=== PATIENT | female | born 2000 | race Caucasian/White ===

== ENCOUNTER 2021-04-09 20:48 | Emergency (ER) | payer BC ==
[2021-04-09 21:33] LABS: HEMATOCRIT 43.9 % (37.0-47.0); MEAN CELL VOLUME 90.1 fl (81.0-99.0); MEAN CORPUSCULAR HGB 30.8 pg (27.0-31.0); MEAN CORPUSCULAR HGB CONC 34.2 g/dl (33.0-37.0); MEAN PLATELET VOLUME 9.1 fl (9.6-12.3); PLATELET COUNT AUTOMATED 113 10*3/uL (130-400); RED BLOOD COUNT 4.87 10*6/uL (4.10-5.10); RED CELL DISTRI WIDTH 12.8 % (0-14.5); WHITE BLOOD COUNT 9.4 10*3/uL (4.8-10.8)
[2021-04-09 21:50] LABS: ALBUMIN 3.2 gm/dl (3.1-4.5); ALKALINE PHOSPHATASE 130 U/L (45-117); BUN 4 mg/dl (7-24); CHLORIDE 108 mmol/L (98-107); CREATININE 0.61 mg/dL (0.55-1.02); LIPASE 69 U/L (73-393); POTASSIUM 3.6 mmol/L (3.5-5.1); SGOT/AST 45 IU/L (3-35); SGPT/ALT 100 U/L (12-78); SODIUM 140 mmol/L (136-145)
[2021-04-09 22:00] LABS: BETA-HCG, QUANT < 1.0 mIU/mL (1-3)
[2021-04-09 22:04] LABS: ATYPICAL LYMPHS 20 % (0-0); TOTAL CELLS COUNTED 100 #CELLS
[2021-04-09 22:05] LABS: PLATELET SUFFICIENCY LOW (NORMAL)
[2021-04-09 22:45] LABS: BILIRUBIN Negative (Negative); BLOOD Negative (Negative); CLARITY Clear (Clear); COLOR Yellow (Yellow); GLUCOSE Negative (Negative); KETONE Negative (Negative); LEUKO ESTERASE Negative (Negative); NITRITE Negative (Negative); PH 7.5 (4.5-8.0); SPECIFIC GRAVITY <= 1.005 (1.001-1.030)
[2021-04-09 23:26] LABS: BACTERIA TRACE; RBC 0-2 rbc/hpf (0-2); WBC 0-2 wbc/hpf (0-5)
[2021-04-10] MEDS ORDERED: DICYCLOMINE HYD10 MG PO (12:06)
[2021-04-10] MEDS ORDERED: ZOFRAN4 MG PO (12:06)
== END 2021-04-09 23:40 | disposition home or self-care (01) ==
LOC: ED 20:48
PROVIDERS: Physician Assistant
DX: R11.2 Nausea with vomiting, unspecified (principal); R10.9 Unspecified abdominal pain

== ENCOUNTER 2021-04-17 14:19 | Emergency (ER) | payer BC ==
[~2021-04-17 14:19] MED LIST: DICYCLOMINE HYD10 MG PO; ZOFRAN4 MG PO
[2021-04-17 15:40] LABS: BILIRUBIN Negative (Negative); BLOOD Negative (Negative); CLARITY Clear (Clear); COLOR Yellow (Yellow); GLUCOSE Negative (Negative); KETONE Negative (Negative); LEUKO ESTERASE Negative (Negative); NITRITE Negative (Negative); PH 7.5 (4.5-8.0); SPECIFIC GRAVITY <= 1.005 (1.001-1.030); UROBILINOGEN 0.2 E.U./dl (0.0-1.0)
[2021-04-17 15:44] LABS: RBC 0-2 rbc/hpf (0-2); WBC 0-2 wbc/hpf (0-5)
[2021-04-17 15:45] LABS: BACTERIA TRACE
[2021-04-17 15:54] LABS: HEMATOCRIT 41.7 % (37.0-47.0); MEAN CELL VOLUME 91.2 fl (81.0-99.0); MEAN CORPUSCULAR HGB 31.5 pg (27.0-31.0); MEAN CORPUSCULAR HGB CONC 34.5 g/dl (33.0-37.0); MEAN PLATELET VOLUME 8.8 fl (9.6-12.3); PLATELET COUNT AUTOMATED 154 10*3/uL (130-400); RED BLOOD COUNT 4.57 10*6/uL (4.10-5.10); RED CELL DISTRI WIDTH 13.2 % (0-14.5); WHITE BLOOD COUNT 7.9 10*3/uL (4.8-10.8)
[2021-04-17 16:11] LABS: ALBUMIN 2.9 gm/dl (3.1-4.5); ALKALINE PHOSPHATASE 118 U/L (45-117); BUN 5 mg/dl (7-24); CHLORIDE 110 mmol/L (98-107); CREATININE 0.56 mg/dL (0.55-1.02); LIPASE 71 U/L (73-393); POTASSIUM 3.8 mmol/L (3.5-5.1); SGOT/AST 52 IU/L (3-35); SGPT/ALT 99 U/L (12-78); SODIUM 140 mmol/L (136-145); TOTAL PROTEIN 7.1 gm/dL (6.4-8.2)
[2021-04-17 16:12] LABS: BETA-HCG, QUANT < 1.0 mIU/mL (1-3)
[2021-04-17 17:09] LABS: ATYPICAL LYMPHS 8 % (0-0); TOTAL CELLS COUNTED 100 #CELLS
[2021-04-17 17:11] LABS: BURR CELLS FEW; OVALOCYTES FEW; PLATELET SUFFICIENCY NORMAL (NORMAL)
[2021-04-17] MEDS ORDERED: ZOFRAN4 MG PO (18:22)
== END 2021-04-17 18:29 | disposition home or self-care (01) ==
LOC: ED 14:19
PROVIDERS: Emergency Medicine
DX: R11.2 Nausea with vomiting, unspecified (principal); R10.13 Epigastric pain

== ENCOUNTER 2021-06-26 11:50 | Emergency (ER) | payer BC ==
[~2021-06-26] VITALS: Wt 72.6 kg
[2021-06-26] MEDS ORDERED: CEPHALEXIN500 M1 PO (12:39)
== END 2021-06-26 13:00 | disposition home or self-care (01) ==
LOC: ED 11:50
DX: H66.91 Otitis media, unspecified, right ear (principal)

== ENCOUNTER 2021-07-17 20:56 | Emergency (ER) | payer BC ==
[~2021-07-17] VITALS: Ht 154.9 cm; Wt 73.5 kg
[~2021-07-17 20:56] MED LIST changes: +CEPHALEXIN500 M1 PO
[2021-07-17] MEDS ORDERED: AUGMENTIN 875875 MG PO (21:54)
== END 2021-07-17 22:01 | disposition home or self-care (01) ==
LOC: ED 20:56
DX: H66.91 Otitis media, unspecified, right ear (principal)

== ENCOUNTER 2022-02-14 17:19 | Emergency (ER) | payer BC ==
[~2022-02-14] VITALS: Ht 160 cm; Wt 83.5 kg
[~2022-02-14 17:19] MED LIST changes: +AUGMENTIN 875875 MG PO
[2022-02-14 18:22] LABS: BASO % 0.2 % (0.0-1.0); EOS # 0.1 10*3/uL (0.0-0.4); EOS % 1.1 % (1.0-4.0); HEMATOCRIT 31.9 % (37.0-47.0); LYMPH # 2.2 10*3/uL (1.3-4.4); LYMPH % 17.5 % (27.0-41.0); MEAN CELL VOLUME 98.2 fl (81.0-99.0); MEAN CORPUSCULAR HGB 33.8 pg (27.0-31.0); MEAN CORPUSCULAR HGB CONC 34.5 g/dl (33.0-37.0); MONO # 0.9 10*3/uL (0.1-1.0); MONO % 6.8 % (3.0-9.0); NEUT # 9.2 10*3/uL (2.3-7.9); NEUT % 73.9 % (47.0-73.0); PLATELET COUNT AUTOMATED 144 10*3/uL (130-400); RED BLOOD COUNT 3.25 10*6/uL (4.10-5.10); RED CELL DISTRI WIDTH 12.9 % (0-14.5); WHITE BLOOD COUNT 12.4 10*3/uL (4.8-10.8)
[2022-02-14 18:49] LABS: ALKALINE PHOSPHATASE 58 U/L (45-117); BUN 7 mg/dl (7-24); CHLORIDE 108 mmol/L (98-107); CREATININE 0.48 mg/dL (0.55-1.02); POTASSIUM 3.6 mmol/L (3.5-5.1); SGOT/AST 15 IU/L (3-35); SGPT/ALT 24 U/L (12-78); SODIUM 139 mmol/L (136-145); TOTAL PROTEIN 6.2 gm/dL (6.4-8.2)
[2022-02-14 19:32] LABS: BILIRUBIN Negative (Negative); BLOOD Negative (Negative); CLARITY Clear (Clear); COLOR Yellow (Yellow); GLUCOSE Negative (Negative); KETONE Negative (Negative); LEUKO ESTERASE Trace (Negative); NITRITE Negative (Negative); SPECIFIC GRAVITY <= 1.005 (1.001-1.030); UROBILINOGEN 0.2 E.U./dl (0.0-1.0)
[2022-02-14 19:56] LABS: BACTERIA TRACE; YEAST TRACE
== END 2022-02-14 20:15 | disposition home or self-care (01) ==
LOC: ED 17:19
PROVIDERS: Nurse Practitioner Family
DX: R55 Syncope and collapse (principal); Z20.822 Contact with and (suspected) exposure to COVID-19

== ENCOUNTER 2022-02-25 02:59 | Emergency (ER) | payer BC ==
[2022-02-25 03:17] LABS: BILIRUBIN Negative (Negative); BLOOD Negative (Negative); CLARITY Clear (Clear); COLOR Yellow (Yellow); GLUCOSE Negative (Negative); KETONE Negative (Negative); LEUKO ESTERASE Negative (Negative); NITRITE Negative (Negative); UROBILINOGEN 0.2 E.U./dl (0.0-1.0)
[2022-02-25 03:43] LABS: RBC 0-2 rbc/hpf (0-2)
== END 2022-02-25 04:42 | disposition left against medical advice (07) ==
LOC: ED 02:59
PROVIDERS: Emergency Medicine
DX: O26.852 Spotting complicating pregnancy, second trimester (principal); Z3A.20 20 weeks gestation of pregnancy

== ENCOUNTER 2024-05-19 23:39 | Inpatient (IN) | payer SELFPAY ==
[~2024-05-19] VITALS: Ht 157.4 cm; Wt 57.4 kg
[2024-05-19 23:47] VITALS: BP 115/62
[2024-05-19] MEDS ORDERED: SODIUM CHLORIDE 0.9% 1,000 ML IV SCH (23:50)
[2024-05-20] VITALS (8 sets, daily range): BP systolic 100–129; BP diastolic 48–84
[2024-05-20 00:09] LABS: BASO % 0.2 % (0.0-1.0); HEMATOCRIT 35.3 % (37.0-47.0); LYMPH # 0.9 10*3/uL (1.3-4.4); LYMPH % 8.4 % (27.0-41.0); MEAN CELL VOLUME 86.7 fl (81.0-99.0); MEAN CORPUSCULAR HGB 28.3 pg (27.0-31.0); MEAN CORPUSCULAR HGB CONC 32.6 g/dl (33.0-37.0); MEAN PLATELET VOLUME 8.4 fl (9.6-12.3); MONO # 0.5 10*3/uL (0.1-1.0); MONO % 4.5 % (3.0-9.0); NEUT # 9.6 10*3/uL (2.3-7.9); NEUT % 86.2 % (47.0-73.0); PLATELET COUNT AUTOMATED 141 10*3/uL (130-400); RED BLOOD COUNT 4.07 10*6/uL (4.10-5.10); RED CELL DISTRI WIDTH 12.6 % (0-14.5); WHITE BLOOD COUNT 11.2 10*3/uL (4.8-10.8)
[2024-05-20 00:27] LABS: BILIRUBIN Negative (Negative); BLOOD Negative (Negative); CLARITY Cloudy (Clear); COLOR Yellow (Yellow); GLUCOSE Negative (Negative); KETONE Negative (Negative); LEUKO ESTERASE 1+ (Negative); NITRITE Negative (Negative); SPECIFIC GRAVITY 1.015 (1.001-1.030)
[2024-05-20 00:28] LABS: CPK < 15 U/L (34-171)
[2024-05-20 00:34] LABS: URINE AMPHETAMINES Positive (1000ng/ml); URINE BARBITURATES Negative (200ng/ml); URINE BENZODIAZEPINES Negative (200ng/ml); URINE CANNABINOIDS (THC) Negative (50ng/ml); URINE COCAINE Positive (300ng/ml); URINE METHADONE Negative (300ng/ml); URINE OPIATES Negative (300ng/ml); URINE PHENCYCLIDINE Negative (25ng/ml)
[2024-05-20 00:40] LABS: ALKALINE PHOSPHATASE 174 U/L (46-116); BUN 7 mg/dl (9-23); CHLORIDE 98 mmol/L (98-107); POTASSIUM 3.7 mmol/L (3.4-5.1); SGPT/ALT 9 U/L (5-49); TOTAL PROTEIN 5.9 gm/dL (6.0-8.0)
[2024-05-20 00:51] LABS: BACTERIA 4+
[2024-05-20 00:52] LABS: WBC 21-30 wbc/hpf (0-5)
[2024-05-20] MEDS ORDERED: Ceftriaxone Sodium 1 GM/10 ML SYR IV ONE (00:55)
[2024-05-20] MEDS ORDERED: ACETAMINOPHEN 325 MG TAB PO ONE (01:00)
[2024-05-20] MEDS ORDERED: ACETAMINOPHEN 650 MG SUPP R PRN (01:35)
[2024-05-20] MEDS ORDERED: BISACODYL 5 MG TAB PO PRN (01:35)
[2024-05-20] MEDS ORDERED: BISACODYL 10 MG SUPP R PRN (01:35)
[2024-05-20] MEDS ORDERED: Magnesium Hydroxide 30 ML UDC PO PRN (01:35)
[2024-05-20] MEDS ORDERED: ACETAMINOPHEN 325 MG TAB PO PRN (01:35)
[2024-05-20] MEDS ORDERED: hydrOXYzine pamoate 25 MG CAP PO ONE ×2 (01:55→08:10)
[2024-05-20] MEDS ORDERED: Buprenorphine Hydrochloride 2 MG TAB SL SCH (06:00)
[2024-05-20] MEDS ORDERED: LORazepam 2 MG/ML VIAL IV ONE ×2 (08:10→19:15)
[2024-05-20] MEDS ORDERED: METHOCARBAMOL 750 MG TAB PO PRN (08:10)
[2024-05-20] MEDS ORDERED: Dicyclomine Hydrochloride 20 MG TAB PO PRN (08:10)
[2024-05-20] MEDS ORDERED: METHOCARBAMOL 750 MG TAB PO ONE (08:15)
[2024-05-20] MEDS ORDERED: Enoxaparin Sodium 40 MG/0.4 ML SYR SC SCH (10:00)
[2024-05-20] MEDS ORDERED: LORazepam 1 MG TAB PO SCH (10:00)
[2024-05-20] MEDS ORDERED: Nicotine 21 MG PATCH T SCH (10:00)
[2024-05-20 10:32] LABS: BUN 6 mg/dl (9-23); CHLORIDE 105 mmol/L (98-107); FREE T4 1.19 ng/dl (0.89-1.76); POTASSIUM 3.1 mmol/L (3.4-5.1)
[2024-05-20 10:45] LABS: BASO % 0.1 % (0.0-1.0); HEMATOCRIT 33.3 % (37.0-47.0); LYMPH # 0.5 10*3/uL (1.3-4.4); MEAN CELL VOLUME 86.3 fl (81.0-99.0); MEAN CORPUSCULAR HGB 28.5 pg (27.0-31.0); MEAN PLATELET VOLUME 8.4 fl (9.6-12.3); MONO # 0.5 10*3/uL (0.1-1.0); MONO % 4.7 % (3.0-9.0); NEUT # 8.9 10*3/uL (2.3-7.9); NEUT % 88.9 % (47.0-73.0); PLATELET COUNT AUTOMATED 127 10*3/uL (130-400); RED BLOOD COUNT 3.86 10*6/uL (4.10-5.10); RED CELL DISTRI WIDTH 12.6 % (0-14.5)
[2024-05-20] MEDS ORDERED: Vancomycin Hydrochloride 1,000 MG in SODIUM CHLORIDE 0.9% 250 ML IV SCH (14:00)
[2024-05-20] MEDS ORDERED: SODIUM CHLORIDE 0.9% 1,000 ML IV ONE (19:15)
[2024-05-20] MEDS ORDERED: TEMAZEPAM 15 MG CAP PO PRN (22:00)
[2024-05-20] MEDS ORDERED: IBUPROFEN 400 MG TAB PO ONE (22:35)
[2024-05-21] VITALS: BP 96/49
[2024-05-21] MEDS ORDERED: Ceftriaxone Sodium 1 GM in SYRINGE INFUSION 10 ML IV SCH (01:00)
[2024-05-21 05:36] LABS: ALKALINE PHOSPHATASE 148 U/L (46-116); BUN 7 mg/dl (9-23); CHLORIDE 110 mmol/L (98-107); SGPT/ALT 9 U/L (5-49); TOTAL PROTEIN 5.3 gm/dL (6.0-8.0)
[2024-05-21] MEDS ORDERED: Buprenorphine Hydrochloride 2 MG TAB SL SCH (06:00)
[2024-05-21 06:04] LABS: BASO % 0.3 % (0.0-1.0); EOS % 0.1 % (1.0-4.0); HEMATOCRIT 30.2 % (37.0-47.0); LYMPH # 1.2 10*3/uL (1.3-4.4); LYMPH % 17.2 % (27.0-41.0); MEAN CELL VOLUME 87.5 fl (81.0-99.0); MEAN CORPUSCULAR HGB 28.4 pg (27.0-31.0); MEAN CORPUSCULAR HGB CONC 32.5 g/dl (33.0-37.0); MEAN PLATELET VOLUME 9.2 fl (9.6-12.3); MONO # 0.6 10*3/uL (0.1-1.0); MONO % 8.1 % (3.0-9.0); NEUT % 73.9 % (47.0-73.0); PLATELET COUNT AUTOMATED 133 10*3/uL (130-400); RED BLOOD COUNT 3.45 10*6/uL (4.10-5.10); RED CELL DISTRI WIDTH 12.6 % (0-14.5); WHITE BLOOD COUNT 6.8 10*3/uL (4.8-10.8)
[2024-05-21 07:07] LABS: HBSAG Negative (Negative); HEP B CORE AB, IGM Negative (Negative); HEPATITIS C ANTIBODY Non Reactive (Non Reactive)
[2024-05-21 08:00] VITALS: BP 103/55
[2024-05-21] MEDS ORDERED: POTASSIUM CHLORIDE 20 MEQ TAB PO ONE (08:00)
[2024-05-21 11:52] VITALS: BP 121/86
[2024-05-21] MEDS ORDERED: LORazepam 1 MG TAB PO SCH (12:00)
[2024-05-21 16:00] VITALS: BP 90/57
[2024-05-22] MEDS ORDERED: LORazepam 1 MG TAB PO PRN
[2024-05-22] MEDS ORDERED: Buprenorphine Hydrochloride 2 MG TAB SL SCH (10:00)
== END 2024-05-21 17:33 | disposition left against medical advice (07) | DRG 871 ==
LOC: ED 23:39 → EDHOLD 05-20 01:06 → 4E 05-20 15:59
PROVIDERS: Internal Medicine; Student in an Organized Health Care Education/Training Program; ADMIT Internal Medicine; ATTEND Internal Medicine
DX: A41.89 Other specified sepsis (principal); E43 Unspecified severe protein-calorie malnutrition; I33.0 Acute and subacute infective endocarditis; N39.0 Urinary tract infection, site not specified; E87.1 Hypo-osmolality and hyponatremia; Z53.29 Procedure and treatment not carried out because of patient's decision for other reasons; D64.9 Anemia, unspecified; F19.10 Other psychoactive substance abuse, uncomplicated; F17.210 Nicotine dependence, cigarettes, uncomplicated; F11.10 Opioid abuse, uncomplicated; R73.9 Hyperglycemia, unspecified; E87.6 Hypokalemia; F14.10 Cocaine abuse, uncomplicated; F15.10 Other stimulant abuse, uncomplicated; Z88.0 Allergy status to penicillin; Z88.8 Allergy status to other drugs, medicaments and biological substances; Z91.09 Other allergy status, other than to drugs and biological substances; Z71.6 Tobacco abuse counseling; Z68.23 Body mass index [BMI] 23.0-23.9, adult

== ENCOUNTER 2024-05-30 21:54 | Emergency (ER) | payer OTHER ==
[~2024-05-30] VITALS: Ht 160 cm; Wt 56.2 kg
[2024-05-30] MEDS ORDERED: SODIUM CHLORIDE 0.9% 1,000 ML IV SCH (22:25)
[2024-05-30] MEDS ORDERED: Ceftriaxone Sodium 1 GM/10 ML SYR IV ONE (22:25)
[2024-05-30] MEDS ORDERED: Vancomycin Hydrochloride 250 ML IV ONE (22:35)
[2024-05-30 23:18] LABS: HEMATOCRIT 28.5 % (37.0-47.0); MEAN CELL VOLUME 83.3 fl (81.0-99.0); MEAN CORPUSCULAR HGB 27.8 pg (27.0-31.0); MEAN CORPUSCULAR HGB CONC 33.3 g/dl (33.0-37.0); MEAN PLATELET VOLUME 13.1 fl (9.6-12.3); PLATELET COUNT AUTOMATED 35 10*3/uL (130-400); RED BLOOD COUNT 3.42 10*6/uL (4.10-5.10); RED CELL DISTRI WIDTH 13.7 % (0-14.5); WHITE BLOOD COUNT 18.1 10*3/uL (4.8-10.8)
[2024-05-30 23:19] LABS: MANUAL DIFF REFLEX YES
[2024-05-30 23:39] LABS: TOTAL CELLS COUNTED 100 #CELLS
[2024-05-30 23:40] LABS: PLATELET SUFFICIENCY LOW (NORMAL)
[2024-05-30 23:43] LABS: POTASSIUM 3.8 mmol/L (3.4-5.1)
[2024-05-30] MEDS ORDERED: DEXTROSE 50% 25 GM/50 ML SYR IV ONE (23:55)
[2024-05-30] MEDS ORDERED: Thiamine 200 MG/2 ML VIAL IV ONE (23:55)
[2024-05-31] MEDS ORDERED: SODIUM CHLORIDE 0.9% 1,000 ML IV ONE ×2 (01:10→11:41)
[2024-05-31] MEDS ORDERED: ACETAMINOPHEN 325 MG TAB PO ONE (01:35)
[2024-05-31 03:21] LABS: BILIRUBIN 1+ (Negative); BLOOD Negative (Negative); CLARITY Cloudy (Clear); COLOR Dark Yellow (Yellow); GLUCOSE Negative (Negative); KETONE Negative (Negative); LEUKO ESTERASE 1+ (Negative); NITRITE Negative (Negative); SPECIFIC GRAVITY 1.015 (1.001-1.030)
[2024-05-31 03:38] LABS: BACTERIA 4+; EPITHELIAL CELLS 21-30; WBC 16-20 wbc/hpf (0-5)
[2024-05-31 03:46] LABS: URINE AMPHETAMINES Positive (1000ng/ml); URINE BARBITURATES Negative (200ng/ml); URINE BENZODIAZEPINES Negative (200ng/ml); URINE CANNABINOIDS (THC) Negative (50ng/ml); URINE COCAINE Negative (300ng/ml); URINE METHADONE Negative (300ng/ml); URINE OPIATES Negative (300ng/ml); URINE PHENCYCLIDINE Negative (25ng/ml)
[2024-05-31] MEDS ORDERED: DEXTROSE 50% 25 GM/50 ML SYR IV ONE (05:05)
[2024-05-31 06:19] LABS: POTASSIUM 3.3 mmol/L (3.4-5.1)
[2024-05-31] MEDS ORDERED: CALCIUM GLUC IN NACL, ISO-OSM 100 ML IV SCH (10:00)
[2024-05-31 10:27] LABS: POTASSIUM 3.6 mmol/L (3.4-5.1)
[2024-05-31] MEDS ORDERED: LEVOFLOXACIN 50 ML IV SCH (11:00)
[2024-05-31] MEDS ORDERED: LEVOFLOXACIN 100 ML IV SCH (11:00)
[2024-05-31] MEDS ORDERED: VANCOMYCIN/WATER FOR INJ (PEG) 150 ML IV SCH (11:00)
== END 2024-05-31 12:11 | disposition short-term general hospital (02) ==
LOC: ED 21:54
PROVIDERS: Internal Medicine; Nurse Practitioner Family
DX: A41.9 Sepsis, unspecified organism (principal); J18.9 Pneumonia, unspecified organism; R79.82 Elevated C-reactive protein (CRP); R79.89 Other specified abnormal findings of blood chemistry; I38 Endocarditis, valve unspecified; E87.1 Hypo-osmolality and hyponatremia; E43 Unspecified severe protein-calorie malnutrition; Z68.1 Body mass index [BMI] 19.9 or less, adult; D69.6 Thrombocytopenia, unspecified; N39.0 Urinary tract infection, site not specified; R65.20 Severe sepsis without septic shock; F15.10 Other stimulant abuse, uncomplicated; F14.10 Cocaine abuse, uncomplicated; E87.6 Hypokalemia; D64.9 Anemia, unspecified; Z79.899 Other long term (current) drug therapy; F19.10 Other psychoactive substance abuse, uncomplicated; F17.200 Nicotine dependence, unspecified, uncomplicated